=== PATIENT | female | born 2000 | race Caucasian/White ===

== ENCOUNTER 2020-04-30 12:29 | Outpatient (CLI) | payer OTHER, SELFPAY ==
[2020-04-30 14:35] LABS: SARS-CoV-2 RNA PCR Negative (Negative)
== END 2020-04-30 12:30 | disposition home or self-care (01) ==
LOC: CHSLAB 12:33
PROVIDERS: PCP Nurse Practitioner; Visit Provider Nurse Practitioner
DX: Z20.822 Contact with and (suspected) exposure to COVID-19 (principal)
CPT/HCPCS: C9803; U0003; U0005

== ENCOUNTER 2020-06-05 13:18 | Outpatient (CLI) | payer OTHER, SELFPAY ==
[2020-06-05 14:20] LABS: SARS-CoV-2 RNA PCR Negative (Negative)
== END 2020-06-05 13:19 | disposition home or self-care (01) ==
PROVIDERS: PCP Family Medicine; Visit Provider Family Medicine
DX: Z20.822 Contact with and (suspected) exposure to COVID-19 (principal)
CPT/HCPCS: C9803; U0003; U0005

== ENCOUNTER 2021-08-02 09:59 | Emergency (ER) | payer OTHER, SELFPAY ==
--- NOTE | ~2021-08-02 | US_ITS ---
EXAMINATION: US OB <=14 wk fetus w TV DATE: 08/02/2021 10:52 INDICATION: Spotting during first trimester TECHNIQUE: Real-time pelvic transabdominal and transvaginal ultrasound was performed. COMPARISON: None. FINDINGS: There is an intrauterine gestational sac. A yolk sac is identified. heart motion is i dentified measuring 127 beats per minute (bpm) by M-mode Doppler. The crown rump length measure s 6 mm , which correlates with an estimated gestational age of 6 weeks and 4 day(s) (+/-) 4 day(s). The right ovary measures 2.6 x 3.0 x 1.6 cm. The left ovary measures 1.7 x 2.8 x 1.3 cm. There is nor mal vascular flow in the ovaries. There is no free fluid in the pelvis. IMPRESSION: 1. Live intrauterine with an estimated gestational age of 6 weeks and 4 day(s) (+/-) 4 day( s) and an estimated delivery date of 03/24/2022. Reviewed, dictated and finalized at location A. IMPRESSION: 1. Live intrauterine with an estimated gestational age of 6 weeks and 4 day(s) (+/-) 4 day(s) and an estimated delivery date of 03/24/2022.
[2021-08-02 10:22] LABS: Basophils Percent Auto 0.4 % (0.2-1.2); Eosinophils Absolute Auto 0.1 K/mm3 (0-0.3); Eosinophils Percent Auto 0.6 % (0-4.4); Hemoglobin 13.6 g/dL (12.0-15.0); Immature Granulocyte Absolute 0.03 K/mm3 (0.00-0.031); Immature Granulocyte Percent A 0.3 % (0-0.5); Lymphocytes Absolute Auto 2.39 K/mm3 (0.9-3.2); Lymphocytes Percent Auto 26.7 % (18.3-44.2); Mean Corpuscular Volume 88.3 fl (80-100); Mean Platelet Volume 10.1 fl (7.4-10.4); Monocytes Absolute Auto 0.6 K/mm3 (0.1-0.6); Monocytes Percent Auto 6.9 % (2.6-8.5); Neutrophils Absolute Auto 5.8 K/mm3 (1.3-6.7); Neutrophils Percent Auto 65.1 % (45.5-73.1); Platelet Count Result 280 k/mm3 (150-375); Red Blood Count 4.53 M/mm3 (4.2-5.4); Red Cell Distribution Width 12.3 % (11.5-14.5)
--- NOTE | 2021-08-02 10:27 | ED.FEMALEGU ---
HPI - Female Genitourinary General Chief complaint: Vaginal Bleeding Stated complaint: with spotting Time Seen by Provider: 08/02/21 10:15 History of Present Illness HPI Narrative: Patient is a 20-year-old female who is currently about 7 weeks by her LMP here for evaluation of vaginal spotting today. Patient states that she has had several episodes of spotting, not enough to soak through a pad or a tampon. Additionally reports some sharp lower abdominal pains last week, now resolved. She has not yet had an ultrasound to confirm IUP nor has she seen an OB doctor yet. Does note nausea and vomiting. Denies fevers, chills, chest pain, shortness of breath, diarrhea or constipation. Related Data Allergies Allergy/AdvReac Type Severity Reaction Status Date / Time No Known Allergies Allergy Verified 08/02/21 11:03 Review of Systems Review of Systems: Gen.: Denies fevers or chills Eyes: Denies eye pain or visual change ENT: Denies congestion Respiratory: Denies shortness of breath or cough CV: Denies chest pain or palpitations GI: Reports lower abdominal pain, resolved. Reports nausea, emesis. no diarrhea reports vaginal spotting. Denies burning, urgency, frequency or hematuria Musculoskeletal: Denies back pain or muscle pain Neuro: Denies numbness, tingling, weakness or focal weakness Skin: Denies rash Except as documented, all other systems reviewed and negative Exam Narrative: APPEARANCE: Well appearing, no pain in distress, well-nourished. Head: Normocephalic and atraumatic. EYES: PERRLA/EOMI, conjunctivae clear NOSE: No nasal drainage EARS: External ear normal in appearance THROAT: Oropharynx is clear. Mucous membranes are moist. NECK: Supple. No adenopathy, no masses. RESPIRATORY: Airway patent, respirations nonlabored. Clear to auscultation bilaterally, no rales, rhonchi, wheezing. CARDIOVASCULAR: Regular rate and rhythm without murmurs, rubs, or gallops. : Exam performed with jerzy Castro. Sixto sign positive. Cervical os is closed with scant amount of blood noted in vaginal vault. ABDOMINAL: Normoactive bowel sounds. Soft, nontender, nondistended. No rebound tenderness or guarding. MUSCULOSKELETAL: Extremities are warm and well-perfused. Moves all extremities well. No edema. NEURO: Normal speech. No focal neurologic deficits. SKIN: Skin is warm and dry. No rashes. PSYCHIATRIC: Normal affect/mood. Course Vital Signs Vital signs: Vital Signs Temperature 98.2 F 08/02/21 10:29 Temperature 98.0 F 08/02/21 11:05 Pulse Rate 108 H 08/02/21 12:43 Respiratory Rate 18 08/02/21 12:43 Blood Pressure 145/90 H 08/02/21 12:43 Pulse Oximetry 100 08/02/21 12:43 MDM - Female Genitourinary MDM Narrative Medical decision making narrative: 20-year-old female who is currently 6 weeks here for evaluation of vaginal spotting. Patient mildly tachycardic, likely due to anxiety. No abdominal tenderness on exam, cervical os is closed with very scant amount of blood noted in vaginal vault. Ultrasound with evidence of live IUP, patient is B- and given dose of RhoGAM. Will provide OB follow-up and discussed return precautions. Lab Data Result diagrams: 08/02/21 10:17 Labs: Lab Results 08/02/21 08/02/21 08/02/21 Range/Units 10:17 10:17 10:19 WBC 9.0 (4.5-10.0) K/mm3 RBC 4.53 (4.2-5.4) M/mm3 Hgb 13.6 (12.0-15.0) g/dL Hct 40.0 (37.0-47.0) % MCV 88.3 (80-100) fl MCH 30.0 (26-34) pg MCHC 34.0 (32-36) g/dl RDW 12.3 (11.5-14.5) % Plt Count 280 (150-375) k/mm3 MPV 10.1 (7.4-10.4) fl Immature Gran % (Auto) 0.3 (0-0.5) % Neut % (Auto) 65.1 (45.5-73.1) % Lymph % (Auto) 26.7 (18.3-44.2) % [place] % (Auto) 6.9 (2.6-8.5) % Eos % (Auto) 0.6 (0-4.4) % Baso % (Auto) 0.4 (0.2-1.2) % Lymph # (Auto) 2.39 (0.9-3.2) K/mm3 [place] # (Auto) 0.6 (0.1-0.6) K/mm3 Eos # (Auto) 0.1
[2021-08-02 10:29] VITALS: TEMP 36.8
[2021-08-02 11:05] VITALS: BP 142/93; PULSE 110; RESP 18; TEMP 36.7; O2SAT 98
[2021-08-02] MEDS: RHO(D) IMMUNE GLOBULIN 300 MCG/2 ML SYRINGE IM (12:39)
[2021-08-02 12:43] VITALS: BP 145/90; PULSE 108; RESP 18; O2SAT 100
== END 2021-08-02 12:41 | disposition home or self-care (01) ==
PROVIDERS: Emergency Provider Emergency Medicine; PCP Family Medicine
DX: O20.9 Hemorrhage in early pregnancy, unspecified (principal); Z3A.01 Less than 8 weeks gestation of pregnancy
CPT/HCPCS: 36415; 76801; 76817; 84702; 85025; 85461; 90384; 96372; 99284; J2790

== ENCOUNTER 2021-12-24 14:31 | Outpatient (CLI) | payer OTHER, SELFPAY ==
[2021-12-24 15:23] LABS: SARS-CoV-2 RNA PCR Negative (Negative)
== END 2021-12-24 14:32 | disposition home or self-care (01) ==
LOC: CHSLAB 14:34
PROVIDERS: PCP Family Medicine; Visit Provider Nurse Practitioner
DX: J06.9 Acute upper respiratory infection, unspecified (principal); Z20.822 Contact with and (suspected) exposure to COVID-19
CPT/HCPCS: U0003; U0005

== ENCOUNTER 2022-01-12 10:23 | Outpatient (CLI) | payer OTHER, SELFPAY | END 2022-01-12 10:24 | disposition home or self-care (01) | LOC: CHSLAB 10:25 | PROVIDERS: PCP Family Medicine; Visit Provider Obstetrics & Gynecology | DX: Z34.80 Encounter for supervision of other normal pregnancy, unspecified trimester (principal) | CPT/HCPCS: 36415; 85461; 86850; 86900; 86901; 90384; J2790 ==

== ENCOUNTER 2022-02-04 21:05 | Observation (INO) | payer OTHER, SELFPAY ==
[2022-02-04 21:23] VITALS: BP 141/70; PULSE 98; RESP 16; TEMP 36.6
[2022-02-04 21:27] VITALS: BMI 29.5
--- NOTE | 2022-02-04 21:27 | OBADM ---
This patient, Lily Walton, admitted to the OB room OB Post 115 for observation. Patient/family oriented to hospital policies and general routines including ID bracelet, bed and alarms, visiting hours, pain management, procedures, bathroom and other care routines, personal items, smoking policy, room service/diet, and visiting hours. Patient/Family are encouraged to report perceived risks to care and to ask questions if they do not understand what they are told or what they should do.
[2022-02-04 21:45] VITALS: BP 135/70; PULSE 103
[2022-02-04 22:00] VITALS: BP 97/75; PULSE 94
[2022-02-04 22:04] LABS: Add Urine Microscopic? YES; Appearance Urine Clear (Clear); Bilirubin Urine Negative (Negative); Blood Urine Negative (Negative); Color Urine Yellow (Yellow); Glucose Urine UA Negative (Negative); Ketones Urine 2+ mg/dL (Negative); Leukocyte Esterase Ur 1+ LEU/UL (Negative); Nitrate Urine Negative (Negative); Protein Urine Negative (Negative); Urobilinogen Urine 0.2 mg/dL (<2.0)
[2022-02-04 22:07] LABS: Bacteria Urine Trace /hpf; Mucus Urine Rare /lpf; RBC Urine 0-2 /hpf (0-2); Squamous Epithelial Cell Urine Many /hpf (Few)
[2022-02-04 22:15] VITALS: BP 120/75; PULSE 109
--- NOTE | 2022-02-04 22:34 | PC.NURSE ---
This RN administered discharge instructions. PT given opportunity to ask questions with all questions answered by RN. PT stable at this time. PT stable at this time. PT discarged ambulatory not in active labor.
--- NOTE | 2022-02-09 07:41 | PM.OBTRLD ---
OB - Triage/Final Diagnosis Visit Information Reason for evaluation: threatened labor Comments/Additional reasons for admission: I have assessed the risk for this patient, Lily Walton, and determined that she would benefit from observation care. Evaluation Laboratory results: Laboratory Tests 02/04/22 21:41 Urine Color Yellow Urine Appearance Clear Urine pH 7.[address] 1.020 Urine Protein Negative Urine Glucose (UA) Negative Urine Ketones 2+ H Ur Blood (Man) Negative Urine Nitrate Negative Urine Bilirubin Negative Urine Urobilinogen 0.2 Leukocyte Esterase Rfl 1+ H Urine RBC 0-2 Urine WBC 10-15 H Ur Squamous Epith Cells Many H Urine Bacteria Trace Urine Mucus Rare
== END 2022-02-04 22:25 | disposition home or self-care (01) ==
PROVIDERS: Admitting Provider Obstetrics & Gynecology; PCP Family Medicine; Visit Provider Obstetrics & Gynecology
DX: O47.9 False labor, unspecified (principal); Z3A.00 Weeks of gestation of pregnancy not specified
CPT/HCPCS: 81001; 87086; 87088; G0378; G0379

== ENCOUNTER 2022-02-27 20:28 | Inpatient (IN) | payer OTHER, SELFPAY ==
[2022-02-27] VITALS (13 sets, daily range): BP systolic 97–153; BP diastolic 60–107; PULSE 98–134; RESP 15; BMI 31.0
[2022-02-27] MEDS: LACTATED RINGERS 1,000 ML 125 ML IV CONT (21:05)
[2022-02-27] MEDS: AMPICILLIN 2 GM/NS 100 ML 2 GM/100 ML BAG IVPB (21:15)
[2022-02-27 21:36] LABS: Alanine Aminotransferase 17 U/L (6-35); Albumin Level 3.9 g/dL (3.5-5.1); Alkaline Phosphatase 155 U/L (38-126); Anion Gap 9 mmol/L (8-16); Aspartate Amino Transferase 22 U/L (14-36); Bilirubin,Total 0.4 mg/dL (0.2-1.3); Blood Urea Nitrogen 4 mg/dL (7-17); Calcium 8.8 mg/dL (8.4-10.2); Carbon Dioxide 22 mmol/L (22-30); Chloride 104 mmol/L (98-107); Estimated Glomerular Filt Rate > 60; Glucose 102 mg/dL (65-110); Potassium 3.9 mmol/L (3.4-5.0); Sodium 135 mmol/L (137-145); Uric Acid 3.7 mg/dL (2.5-7.5)
[2022-02-27 21:39] LABS: Basophils Absolute Auto 0.1 K/mm3 (0.0-0.1); Basophils Percent Auto 0.6 % (0.2-1.2); Eosinophils Absolute Auto 0.2 K/mm3 (0-0.3); Eosinophils Percent Auto 0.9 % (0-4.4); Hematocrit 32.9 % (37.0-47.0); Hemoglobin 10.4 g/dL (12.0-15.0); Immature Granulocyte Absolute 0.77 K/mm3 (0.00-0.031); Immature Granulocyte Percent A 3.9 % (0-0.5); Lymphocytes Absolute Auto 3.18 K/mm3 (0.9-3.2); Lymphocytes Percent Auto 15.9 % (18.3-44.2); Mean Corpuscular HGB Conc 31.6 g/dl (32-36); Mean Corpuscular Hemoglobin 25.9 pg (26-34); Mean Corpuscular Volume 81.8 fl (80-100); Mean Platelet Volume 9.8 fl (7.4-10.4); Monocytes Absolute Auto 1.6 K/mm3 (0.1-0.6); Monocytes Percent Auto 7.9 % (2.6-8.5); Neutrophils Absolute Auto 14.1 K/mm3 (1.3-6.7); Neutrophils Percent Auto 70.8 % (45.5-73.1); Nucleated Red Blood Cells Perc 0.1 % (0.0-0.2); Platelet Count Result 383 k/mm3 (150-375); Red Blood Count 4.02 M/mm3 (4.2-5.4); Red Cell Distribution Width 13.9 % (11.5-14.5)
--- NOTE | 2022-02-27 21:52 | LDADM ---
This patient, Lily Walton, was admitted to Labor/Delivery/Recovery 105 on 02/27/22 at 20:28. Plans for labor, pain management and were discussed with patient. Patient/family oriented to hospital policies and general routines including ID bracelet, bed and alarms, visiting hours, pain management, procedures, bathroom and other care routines, personal items, smoking policy, room service/diet and guest tray routines, infant security routines, and visiting hours. Patient/Family are encouraged to report perceived risks to care and to ask questions if they do not understand what they are told or what they should do. See OBIX for further documentation.
[2022-02-27] MEDS: ONDANSETRON INJ 4 MG/2 ML VIAL IV PUSH (21:54)
[2022-02-28] VITALS (164 sets, daily range): BP systolic 99–145; BP diastolic 51–105; PULSE 97–163; RESP 15–16; TEMP 36.5–37.5; O2SAT 91–100
[2022-02-28] MEDS: LACTATED RINGERS 1,000 ML 125 ML IV CONT ×3 (00:11→09:32)
--- NOTE | 2022-02-28 00:44 | WPDANESEPP ---
Anes - Eval Pre Procedure Procedure: labor epidural Date/Time: 02/28/22 00:44 Surgeon: venessa Preop Diagnosis: pain during labor Pre Op Diagnosis: SROM Patient Data Age: 21 Gender: F Height: 1.63 m Weight: 82 kg Last Vital Signs Temp 37.4 C 02/28/22 00:16 Pulse 106 H 02/28/22 00:31 Resp 16 02/28/22 00:16 BP 129/73 02/28/22 00:31 Pulse Ox 100 02/28/22 00:41 Allergies Allergy/AdvReac Type Severity Reaction Status Date / Time No Known Allergies Allergy Verified 02/27/22 22:05 Home Medications Medication Instructions Recorded Confirmed Type vits 75-iron 28 mg-folic 1 pkg PO DAILY 02/27/22 02/27/22 History acid 800 mcg-omega3 440 mg oral pack Laboratory Tests 02/27/22 02/27/22 02/27/22 21:19 21:19 21:20 WBC 20.0 K/mm3 H K/mm3 (4.5-10.0) RBC 4.02 M/mm3 L M/mm3 (4.2-5.4) Hgb 10.4 g/dL L D g/dL (12.0-15.0) Hct 32.9 % L % (37.0-47.0) MCV 81.8 fl fl (80-100) MCH 25.9 pg L pg (26-34) MCHC 31.6 g/dl L g/dl (32-36) RDW 13.9 % % (11.5-14.5) Plt Count 383 k/mm3 H k/mm3 (150-375) MPV 9.8 fl fl (7.4-10.4) Immature Gran % (Auto) 3.9 % H % (0-0.5) Neut % (Auto) 70.8 % % (45.5-73.1) Lymph % (Auto) 15.9 % L % (18.3-44.2) [place] % (Auto) 7.9 % % (2.6-8.5) Eos % (Auto) 0.9 % % (0-4.4) Baso % (Auto) 0.6 % % (0.2-1.2) Lymph # (Auto) 3.18 K/mm3 K/mm3 (0.9-3.2) [place] # (Auto) 1.6 K/mm3 H K/mm3 (0.1-0.6) Eos # (Auto) 0.2 K/mm3 K/mm3 (0-0.3) Baso # (Auto) 0.1 K/mm3 K/mm3 (0.0-0.1) Abs Immat Gran (auto) 0.77 K/mm3 H K/mm3 (0.00-0.031) Absolute Neuts (auto) 14.1 K/mm3 H K/mm3 (1.3-6.7) Absolute Nucleated RBC 0.0 K/mm3 K/mm3 (0.0-0.012) Nucleated RBC % 0.1 % % (0.0-0.2) Sodium 135 mmol/L L mmol/L (137-145) Potassium 3.9 mmol/L mmol/L (3.4-5.0) Chloride 104 mmol/L mmol/L (98-107) Carbon Dioxide 22 mmol/L mmol/L (22-30) Anion Gap 9 mmol/L mmol/L (8-16) BUN 4 mg/dL L mg/dL (7-17) Creatinine 0.40 mg/dL L mg/dL (0.7-1.0) Estim Creat Clear Calc Not Reportable Estimated GFR > 60 (59 - ) Glucose 102 mg/dL mg/dL (65-110) Uric Acid 3.7 mg/dL mg/dL (2.5-7.5) Calcium 8.8 mg/dL mg/dL (8.4-10.2) Total Bilirubin 0.4 mg/dL mg/dL (0.2-1.3) AST 22 U/L U/L (14-36) ALT 17 U/L U/L (6-35) Alkaline Phosphatase 155 U/L H U/L (38-126) Total Protein 8.0 g/dL g/dL (6.3-8.2) Albumin 3.9 g/dL g/dL (3.5-5.1) RPR Pending Patient hx anesthesia problems: none Family hx anesthesia problems: none Results Review: All pre-operative results and documents have been reviewed as part of the pre-operative evaluation. [facility] Social History Social History Smoking status: Never smoker Second hand tobacco smoke exposure: No Substance use: never Lack of Transportation: No Lack of Food: Never True Current Housing: I Have Housing Concerned About Future Housing: No Difficulty Paying Gas/Electric Bills: No Difficulty Paying for Meds: No Currently Unemployed: No Education: Don't Know Difficulty w/ Childcare or Family Care: No Spiritual care concerns: No Exam Day of Procedure 02/28/22 00:44
[2022-02-28] MEDS: AMPICILLIN 1 GM/NS 50 ML 1 GM/50 ML BAG IVPB ×3 (01:04→09:32)
[2022-02-28] MEDS: OXYTOCIN 30 UNITS/NS 500 ML 30 UNITS/500 ML BAG IV CONT (05:01)
--- NOTE | 2022-02-28 07:46 | PM.IMHP ---
H&P: HPI History of Present Illness Date/Time: 02/28/22 07:46 Chief Complaint: Rupture membranes at term Narrative: this is a 21-year-old Kenzie last menstrual period is unknown, EDC is 03/23/2022, confirmed by early ultrasound the presents at 37 weeks gestation with spontaneous rupture membranes prior to admission. Her was complicated by low-lying placenta which resolved. She is Rh negative and received RhoGAM at 28 weeks. Her diabetic screen was normal. [facility] Social History Social History Smoking status: Never smoker Second hand tobacco smoke exposure: No Substance use: never Lack of Transportation: No Lack of Food: Never True Current Housing: I Have Housing Concerned About Future Housing: No Difficulty Paying Gas/Electric Bills: No Difficulty Paying for Meds: No Currently Unemployed: No Education: Don't Know Difficulty w/ Childcare or Family Care: No Spiritual care concerns: No Meds Home Medications and Allergies Home Medications Medication Instructions Recorded Confirmed Type vits 75-iron 28 mg-folic 1 pkg PO DAILY 02/27/22 02/27/22 History acid 800 mcg-omega3 440 mg oral pack Allergies Allergy/AdvReac Type Severity Reaction Status Date / Time No Known Allergies Allergy Verified 02/27/22 22:05 Vital Signs Vital Signs - 24 hr 02/27/22 20:43 02/27/22 20:48 02/27/22 21:15 Temperature Pulse Rate 134 H 128 H 121 H Respiratory Rate 15 Blood Pressure 153/107 H 138/86 136/84 Pulse Oximetry 02/27/22 21:30 02/27/22 21:46 02/27/22 22:00 Temperature Pulse Rate 117 H 116 H 112 H Respiratory Rate Blood Pressure 138/90 132/86 129/82 Pulse Oximetry 02/27/22 22:15 02/27/22 22:31 02/27/22 22:46 Temperature Pulse Rate 114 H 98 106 H Respiratory Rate Blood Pressure 127/87 112/66 126/60 Pulse Oximetry 02/27/22 23:01 02/27/22 23:15 02/27/22 23:30 Temperature Pulse Rate 116 H 110 H 103 H Respiratory Rate Blood Pressure 114/65 117/69 97/79 L Pulse Oximetry 02/27/22 23:45 02/28/22 00:00 02/28/22 00:16 Temperature 99.3 F Pulse Rate 107 H 120 H Respiratory Rate 16 Blood Pressure 111/60 132/91 H Pulse Oximetry 02/28/22 00:31 02/28/22 00:41 02/28/22 00:41 Temperature Pulse Rate 106 H Respiratory Rate Blood Pressure 129/73 Pulse Oximetry 100 100 02/28/22 00:45 02/28/22 00:46 02/28/22 00:49 Temperature Pulse Rate 121 H 127 H Respiratory Rate Blood Pressure 140/84 144/76 H Pulse Oximetry 100 02/28/22 00:51 02/28/22 00:56 02/28/22 01:01 Temperature Pulse Rate 115 H 151 H Respiratory Rate Blood Pressure 136/89 121/81 Pulse Oximetry 99 100 100 02/28/22 01:02 02/28/22 01:04 02/28/22 01:05 Temperature Pulse Rate 129 H 125 H 114 H Respiratory Rate Blood Pressure 132/71 121/71 122/62 Pulse Oximetry 02/28/22 01:06 02/28/22 01:09 02/28/22 01:11 Temperature Pulse Rate 114 H 134 H Respiratory Rate Blood Pressure 124/67 115/68 Pulse Oximetry 100 100 02/28/22 01:12 02/28/22 01:16 02/28/22 01:18 Temperature Pulse Rate 116 H 135 H 119 H Respiratory Rate Blood Pressure 128/69 130/63 124/68 Pulse Oximetry 100 02/28/22 01:21 02/28/22 01:24 02/28/22 01:26 Temperature Pulse Rate 110 H 109 H Respiratory Rate Blood Pressure 133/76 130/67 Pulse Oximetry 100 100 02/28/22 01:28 02/28/22 01:31 02/28/22 01:37 Temperature 98.9 F Pulse Rate 122 H 126 H Respiratory Rate 16 Blood Pressure 127/71 138/82 Pulse Oximetry 100 02/28/22 01:46 02/28/22 02:01 02/28/22 02:15 Temperature Pulse Rate 119 H 116 H 116 H Respiratory Rate Blood Pressure 124/84 112/73 118/73 Pulse Oximetry 02/28/22 02:30 02/28/22 02:42 02/28/22 02:46 Temperature 97.7 F Pulse Rate 116 H 97 Respiratory Rate 16 Blood Pressure 128/76
[2022-02-28 10:51] LABS: Rapid Plasma Reagin Non-Reactive (NonReactive)
--- NOTE | 2022-02-28 12:13 | PM.OBPRVD ---
OB - Delivery Note Procedure Delivery date: 02/28/22 Induction method: None Delivery augmentation: Pitocin Delivery monitor: External FHT and Internal Uterine Route of delivery: Episiotomy description: None Laceration Description: Perineal - 2nd Degree Delivery repair: vicryl Specimen: No Quantitative Blood Loss (ml): 60 Anesthesia type: Epidural Disposition: Floor Morning View Baby Date of : 02/28/22 Time of : 12:02 Weeks of gestation at delivery: 37 gender: Female presentation: vertex position: Right Occiput Anterior Placenta delivery description: Spontaneous Cord Vessel Description: 3 Vessels and Delayed Cord Clamping score one minute: 7 score five minutes: 9
[2022-02-28] MEDS: OXYTOCIN 30 UNITS/NS 500 ML 30 UNITS/500 ML BAG 125 UNITS IV CONT (12:35)
--- NOTE | 2022-02-28 12:41 | PC.NURSE ---
[address] [place] hung by Sherri Srivastava RN
[2022-02-28] MEDS: ACETAMINOPHEN 325 MG TABLET 650 MG PO (13:42)
--- NOTE | 2022-02-28 15:23 | PC.NURSE ---
Patient transferred to post room #282 via ( W/C ). Support person present. Oriented to unit, room, information board, rooming in, admission packet and security measures. Patient verbalizes understanding.
[2022-02-28] MEDS: DOCUSATE SODIUM 100 MG CAPSULE PO (15:49)
[2022-03-01 00:24] VITALS: BP 136/89; PULSE 102; RESP 16; TEMP 37.1; O2SAT 99
[2022-03-01] MEDS: ACETAMINOPHEN 325 MG TABLET 650 MG PO ×2 (00:50→09:31)
[2022-03-01 05:03] VITALS: BP 119/81; PULSE 105; RESP 18; TEMP 36.7; O2SAT 99
[2022-03-01 05:33] LABS: Hematocrit 25.6 % (37.0-47.0); Hemoglobin 8.2 g/dL (12.0-15.0)
--- NOTE | 2022-03-01 07:27 | WPDANLDPN2 ---
Anes-Prog Note L&D Date/Time: 03/01/22 07:27 Comfortable throughout: labor and delivery Neuraxial method: epidural Epidural/Spinal procedure site: clean & non-tender Neuro status: Neuro function grossly intact. Cardiovascular status: normal Respiratory status: normal Airway patency: baseline Mental status: baseline Post-Op hydration status: normal Vital Signs: Last Vital Signs Temp 36.7 C 03/01/22 05:03 Pulse 105 H 03/01/22 05:03 Resp 18 03/01/22 05:03 BP 119/81 03/01/22 05:03 Pulse Ox 99 03/01/22 05:03 O2 Del Method Room Air 02/28/22 15:46 Pain score (VAS): 02/15 I/O: Intake & Output 02/28/22 02/28/22 03/01/22 15:59 23:59 07:59 Intake Total 1500 Output Total 305 500 Balance 1195 -500 Post-procedural complaints: none Patient feedback: Patient satisfied with anesthetic care.
--- NOTE | 2022-03-01 07:39 | PM.DS ---
DS: Admitting Diagnosis Discharge Date 03/01/22 Admitting Diagnosis Term DS: Discharge Diagnosis Discharge Diagnosis (1) Term : Code(s): Z34.90 - Encounter for supervision of normal , unspecified, unspecified trimester Status: Acute DS: Summary Hospital Course Reason for hospitalization: Active labor at 37 weeks gestation Hospital Course: Patient was admitted in active labor and underwent spontaneous vaginal delivery. The course unremarkable. She remained afebrile. She was up, voiding without difficulty, ambulating, eating regular diet, general without complaints. Time Spent with Patient Time attestation: Total time spent providing and/or coordinating discharge services: Exam Const: General: cooperative, healthy appearing, comfortable and well groomed Nutritional Appearance: average body habitus Orientation/consciousness: oriented to person, oriented to place and oriented to time HENMT: Head: normal to inspection Resp: Effort & Inspection: normal respiratory effort Cardio: Rate: regular rate Rhythm: regular rhythm Heart sounds: S1 normal heart sound present and S2 normal heart sound present GI: Inspection: normal to inspection (Fundus firm below the umbilicus) DS: Data Data Completed and Pending Labs on day of discharge: Labs from last 24 hours 03/01/22 03/01/22 02/27/22 05:20 05:20 21:19 Hgb 8.2 L Hct 25.6 L RPR Blood Type B Negative Antibody Screen TNP Antibody Identification Inconclusive Screen Negative Baby's Blood Type B pos Baby's JR Negative Doses of RhIg Required 1 02/27/22 21:19 Hgb Hct RPR Non-reactive Blood Type Antibody Screen Antibody Identification Screen Baby's Blood Type Baby's JR Doses of RhIg Required Discharge Plan Discharge Attending physician on discharge: Linden Billingsley Discharging Clinician: Linden Billingsley Patient Disposition: Home, Self-Care Activity: pelvic rest Diet: heart healthy Wound Care Instructions: follow printed instructions Discharge Instructions: Education: Mom and Baby Guide Given to: Mother Follow-Up: Call your delivering provider's office for an appointment to be seen in: 4-6 weeks Mom and baby should come to the [facility] for the follow-up appointment. Appointment Date/Time: Wednesday March 02, 2022 at 3:30 pm What to expect at your follow-up visit: Physical Assessment Call [phone] if you are unable to keep your appointment time. BREAST CARE: * Wear a snug supportive bra. * For engorgement discomfort: Breast Feeding: * Apply warm moist washcloths * Express milk as needed to relieve engorgement * Wear loose clothing * For sore nipples: * Identify correct latch-on * Apply warm moist washcloths before and after nursing * Air dry nipples after nursing * May apply Lansinoh cream to nipples PERINEAL CARE: * Until bleeding stops, use your pedro bottle after urinating * Change your pad frequently throughout the day * You may take sitz baths several times a day (fill your bathtub with warm water and soak for 20 minutes.) Do NOT bathe in the water * No tub baths until seen by your physician - You may shower ACTIVITY: * Rest as much as possible. * Do not exercise or lift anything heavier than your baby (such as laundry or other children.) * Avoid stairs or driving as much as possible. * Do not put anything into the vagina. No douching, tampons, or sexual activity until seen by physician. NOTIFY PHYSICIAN IF YOU HAVE ANY QUESTIONS OR IF ANY OF THE FOLLOWING SYMPTOMS OCCUR: * If your episiotomy or incision becomes red, swollen, or more painful than what you have experienced in the hospital. * If your vaginal bleeding becomes foul smelling. * If your vaginal bleeding becomes more heavy than
--- NOTE | 2022-03-01 07:41 | PM.OBPNVD ---
OB - PN: Subj Subjective Date/time seen: 03/01/22 07:41 Patient comments: no complaints and pain well controlled baby status: doing well and nursing well OB - PN: Obj Data Labs 03/01/22 05:20 02/27/22 21:20 Labs: Laboratory Results - last 24 hr 02/27/22 02/27/22 03/01/22 21:19 21:19 05:20 Hgb 8.2 L Hct 25.6 L RPR Non-reactive Blood Type Antibody Screen Antibody Identification Inconclusive Screen Baby's Blood Type Baby's JR Doses of RhIg Required 03/01/22 05:20 Hgb Hct RPR Blood Type B Negative Antibody Screen TNP Antibody Identification Screen Negative Baby's Blood Type B pos Baby's JR Negative Doses of RhIg Required 1 OB - PN A/P Plan day: 1 Plan: routine care Time Spent With Patient Time: Total time spent is greater than 50% in coordination of care (as documented) at patient's floor/unit and/or counseling patient: Time with patient: less than 15 minutes Exam Const: General: cooperative, healthy appearing and comfortable Nutritional Appearance: average body habitus Orientation/consciousness: oriented to person, oriented to place and oriented to time HENMT: Head: normal to inspection Resp: Effort & Inspection: normal respiratory effort Cardio: Rate: regular rate Rhythm: regular rhythm Heart sounds: S1 normal heart sound present and S2 normal heart sound present GI: Inspection: normal to inspection (Fundus firm below the umbilicus)
[2022-03-01 08:58] VITALS: BP 129/89; PULSE 106; RESP 16; TEMP 36.7; O2SAT 98
[2022-03-01 09:31] VITALS: BP 129/89; PULSE 106; RESP 16; TEMP 36.7; O2SAT 98
[2022-03-01] MEDS: MULTIVIT/MIN/PREN/FOL AC/IRON TABLET 1 TAB PO (09:33)
[2022-03-01] MEDS: POLYSACCHARIDE IRON COMPLEX 150 MG CAPSULE PO (09:33)
[2022-03-01] MEDS: DOCUSATE SODIUM 100 MG CAPSULE PO (09:33)
[2022-03-01] MEDS: RHO(D) IMMUNE GLOBULIN 300 MCG/2 ML SYRINGE IM (09:39)
== END 2022-03-01 12:30 | disposition home or self-care (01) | DRG 560 ==
LOC: ANHLDR 20:53 → ANHOB2 02-28 15:35
PROVIDERS: Obstetrics & Gynecology; Admitting Provider Obstetrics & Gynecology; PCP Family Medicine; Visit Provider Obstetrics & Gynecology
DX: O60.14X0 Preterm labor third trimester with preterm delivery third trimester, not applicable or unspecified (principal); O42.92 Full-term premature rupture of membranes, unspecified as to length of time between rupture and onset of labor; O70.1 Second degree perineal laceration during delivery; Z3A.37 37 weeks gestation of pregnancy; Z37.0 Single live birth; Z67.91 Unspecified blood type, Rh negative
CPT/HCPCS: 36415; 80053; 84112; 84550; 85014; 85018; 85025; 85461; 86592; 86850; 86880; 86900; 86901; 86902; 90384; A9270; J0290; J2405; J2590; J2790; J2795; J7120

== ENCOUNTER 2024-10-28 11:29 | Outpatient (CLI) | payer OTHER, SELFPAY ==
--- OUTSIDE RECORDS SUMMARY | 2024-10-28 12:39 | XMS_ITS | Clinical Summary ---
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 Gender Identity Not on file Sexual Orientation Not on file Plan of Treatment Health Maintenance Due Date Last Done Comments Cervical Cancer Screening Pa p Smear (Age 21 to 29) Every 3 Years 1999 Cervical Cancer Screening 1999 Annual Physical 10/29/2002 HPV Vaccines (1 - 3-dose series) 10/29/2014 Hepatitis C 10/29/2017 DTaP, Tdap and Td Vaccines ( 1 - Tdap) 10/29/2018 Hepatitis B Vaccines (1 of 3 - 19+ 3-dose series) 10/29/2018 COVID-19 Vaccine (2023-2 5 season) 2024 Meningococcal B Vaccine Aged Out No l onger eligible based on patient's age to complete this topic Meningococcal Vaccine Aged Out No sacha gerardo eligible based on patient's age to complete this topic Pneumococcal Vaccine: Pediat rics (0 to 5 Years) and At-Risk Patients (6 to 49 Years) Aged Out No longer eligible b ased on patient's age to complete this topic RSV Immunizations Under 20 Months Aged Out No longer eligible based on patient's age to complete this topic
== END 2024-10-28 11:30 | disposition home or self-care (01) ==
PROVIDERS: PCP Obstetrics & Gynecology; Visit Provider Obstetrics & Gynecology
DX: Z36.89 Encounter for other specified antenatal screening (principal)
CPT/HCPCS: 36415; 85461; 86850; 86900; 86901; 90384; J2790

== ENCOUNTER 2024-11-20 15:23 | Outpatient (CLI) | payer OTHER, SELFPAY ==
[2024-11-20] VITALS (20 sets, daily range): BP systolic 115–128; BP diastolic 66–83; PULSE 98–108; O2SAT 98–100; BMI 29.5
[2024-11-20 15:58] LABS: Hematocrit 32.4 % (37.0-47.0); Hemoglobin 10.7 g/dL (12.0-15.0); Immature Granulocyte Percent A 4.5 % (0-0.5); Lymphocytes Absolute Auto 2.87 K/mm3 (0.9-3.2); Mean Corpuscular HGB Conc 33.0 g/dl (32-36); Mean Corpuscular Hemoglobin 28.4 pg (26-34); Mean Corpuscular Volume 85.9 fl (80-100); Nucleated Red Blood Cells Absolute Auto 0.000 K/mm3 (0.0-0.012); Nucleated Red Blood Cells Perc 0.0 % (0.0-0.2); Platelet Count Result 286 k/mm3 (150-375); Red Blood Count 3.77 M/mm3 (4.2-5.4); White Blood Count 17.0 K/mm3 (4.5-10.0)
[2024-11-20 16:03] LABS: Add Urine Microscopic? YES; Appearance Urine Turbid (Clear); Glucose Urine UA Negative (Negative); Leukocyte Esterase Ur 3+ LEU/UL (Negative); Nitrate Urine Negative (Negative); Non Pathogenic Casts 0-2; Specific Grav Ur 1.025 (1.001-1.035)
[2024-11-20 16:11] LABS: Alanine Aminotransferase 17 U/L (6-35); Albumin Level 3.7 g/dL (3.5-5.1); Alkaline Phosphatase 90 U/L (38-126); Anion Gap 9 mmol/L (4-12); Aspartate Amino Transferase 24 U/L (14-36); Bilirubin,Total 0.2 mg/dL (0.2-1.3); Blood Urea Nitrogen 8 mg/dL (7-17); Calcium 8.8 mg/dL (8.4-10.2); Carbon Dioxide 20 mmol/L (22-30); Chloride 104 mmol/L (98-107); Estimated CRCL calculation 180 ml/min; Estimated Glomerular Filt Rate > 60; Glucose 77 mg/dL (65-110); Potassium 3.8 mmol/L (3.4-5.0); Sodium 133 mmol/L (137-145); Total Protein 7.8 g/dL (6.3-8.2); Uric Acid 2.9 mg/dL (2.5-7.5)
[2024-11-20 16:22] LABS: Total Protein Urine Random 16 mg/dL; Ur Ttl Prot Creatinine Ratio 0.08 mg/mg (0-0.20)
--- OUTSIDE RECORDS SUMMARY | 2024-11-20 17:30 | XMS_ITS | Clinical Summary ---
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
== END 2024-11-20 16:45 | disposition home or self-care (01) ==
LOC: ANHOBOP 15:33 → ANHLDR 15:34
PROVIDERS: Visit Provider Obstetrics & Gynecology
DX: O13.9 Gestational [pregnancy-induced] hypertension without significant proteinuria, unspecified trimester (principal); Z3A.00 Weeks of gestation of pregnancy not specified
CPT/HCPCS: 36415; 59025; 80053; 81001; 82570; 84156; 84550; 85025; 99199

== ENCOUNTER 2024-11-24 01:05 | Observation (INO) | payer OTHER, SELFPAY ==
[2024-11-24 01:27] VITALS: BP 139/72; PULSE 100
[2024-11-24 01:31] VITALS: BP 129/64; PULSE 101
[2024-11-24 01:46] VITALS: BP 118/60; PULSE 99
[2024-11-24 01:48] LABS: Add Urine Microscopic? YES; Appearance Urine Cloudy (Clear); Glucose Urine UA Negative (Negative); Leukocyte Esterase Ur 2+ LEU/UL (Negative); Need Manual Microscopic Reviewed; Nitrate Urine Negative (Negative); Non Pathogenic Casts 0-2; Specific Grav Ur 1.027 (1.001-1.035)
[2024-11-24 02:01] VITALS: BP 116/61; PULSE 99
[2024-11-24 02:08] VITALS: BMI 29.1
--- NOTE | 2024-11-24 02:10 | OBADM ---
This patient, Lily Walton, admitted to the OB room OB Post 117 for observation. Patient/family oriented to hospital policies and general routines including ID bracelet, bed and alarms, visiting hours, pain management, procedures, bathroom and other care routines, personal items, smoking policy, room service/diet, and visiting hours. Patient/Family are encouraged to report perceived risks to care and to ask questions if they do not understand what they are told or what they should do.
[2024-11-24 02:16] VITALS: BP 122/67; PULSE 96
[2024-11-24] MEDS: NITROFURANTOIN MONOHYD MACROCR 100 MG CAP PO (02:25)
--- NOTE | 2024-11-26 16:25 | PM.OBTRLD ---
OB - Triage/Final Diagnosis Visit Information Reason for evaluation: threatened labor Comments/Additional reasons for admission: I have assessed the risk for this patient, Lily Walton, and determined that she would benefit from observation care. Evaluation Laboratory results: Laboratory Tests 11/24/24 01:23 Urine Color Yellow Urine Appearance Cloudy H Urine pH 6.5 Ur Specific [place] 1.027 Urine Protein Trace Urine Glucose (UA) Negative Urine Ketones Trace H Ur Blood (Man) Negative Urine Nitrate Negative Urine Bilirubin Negative Urine Urobilinogen 1.0 Add Ur Microanalysis Reviewed Leukocyte Esterase Rfl 2+ H Urine RBC 11-20 H Urine WBC 21-50 H Ur Squamous Epith Cells Many H Urine Bacteria 4+ H Urine Casts 0-2
== END 2024-11-24 02:30 | disposition home or self-care (01) ==
PROVIDERS: Admitting Provider Obstetrics & Gynecology; Visit Provider Obstetrics & Gynecology
DX: O47.03 False labor before 37 completed weeks of gestation, third trimester (principal); Z3A.29 29 weeks gestation of pregnancy
CPT/HCPCS: 81001; A9270; G0378; G0379

== ENCOUNTER 2025-01-29 05:09 | Inpatient (IN) | payer OTHER, SELFPAY ==
[2025-01-29] VITALS (70 sets, daily range): BP systolic 76–145; BP diastolic 27–96; PULSE 94–159; RESP 16; TEMP 36.4–36.8; O2SAT 98–100; BMI 31.4
--- NOTE | 2025-01-29 05:51 | LDADM ---
This patient, Lily Walton, was admitted to Labor/Delivery/Recovery 107 on 01/29/25 at 05:09. Plans for labor, pain management and were discussed with patient. Patient/family oriented to hospital policies and general routines including ID bracelet, bed and alarms, visiting hours, pain management, procedures, bathroom and other care routines, personal items, smoking policy, room service/diet and guest tray routines, infant security routines, and visiting hours. Patient/Family are encouraged to report perceived risks to care and to ask questions if they do not understand what they are told or what they should do. See OBIX for further documentation.
--- NOTE | 2025-01-29 06:03 | PM.IMHP2 ---
H&P: HPI History of Present Illness Date/Time: 01/29/25 06:03 Chief Complaint: Term for induction of labor Narrative: This is 24-year-old 2 para 1 whose last menstrual period was 05/03/2024, EDC is 02/05/2025, confirmed by 6 week ultrasound who presents at 39 weeks gestation for induction of labor she has had a negative group B strep she received RhoGAM at 28 weeks and she passed her diabetic screen the cervix is very favorable Review of Systems Review of Systems: Gen.: Denies fevers or chills Eyes: Denies eye pain or visual change ENT: Denies congestion Respiratory: Denies shortness of breath or cough CV: Denies chest pain or palpitations GI: Reports lower abdominal pain, resolved. Reports nausea, emesis. no diarrhea reports vaginal spotting. Denies burning, urgency, frequency or hematuria Musculoskeletal: Denies back pain or muscle pain Neuro: Denies numbness, tingling, weakness or focal weakness Skin: Denies rash Except as documented, all other systems reviewed and negative [facility] Family History Family History Father Diabetes mellitus Grandparent Breast cancer Social History Social History Smoking status: Never smoker Second hand tobacco smoke exposure: No Substance use: never Lack of Transportation: No Lack of Food: Never True Current Housing: I Have Housing Concerned About Future Housing: No Difficulty Paying Gas/Electric Bills: No Difficulty Paying for Meds: No Currently Unemployed: No Education: High School Diploma/GED Difficulty w/ Childcare or Family Care: No Spiritual care concerns: No Meds Home Medications and Allergies Allergies Allergy/AdvReac Type Severity Reaction Status Date / Time No Known Allergies Allergy Verified 01/29/25 05:21 Vital Signs Vital Signs - 24 hr 01/29/25 05:51 Pulse Rate 107 H Blood Pressure 127/79 Exam Const: General: cooperative, healthy appearing and comfortable Nutritional Appearance: average body habitus Orientation/consciousness: oriented to person, oriented to place and oriented to time HENMT: Head: normal to inspection (Gravid soft uterus) Assessment and Plan Assessment and plan (1) Term : Code(s): Z34.90 - Encounter for supervision of normal , unspecified, unspecified trimester Status: Acute Plan Medical induction of labor. Spontaneous vaginal is expected. She is an epidural candidate
[2025-01-29] MEDS: LACTATED RINGERS 1,000 ML 125 ML IV CONT ×2 (07:02→08:58)
[2025-01-29] MEDS: OXYTOCIN 30 UNITS/NS 500 ML 30 UNITS/500 ML BAG IV CONT (07:02)
[2025-01-29 07:06] LABS: Hematocrit 32.8 % (37.0-47.0); Hemoglobin 10.5 g/dL (12.0-15.0); Immature Granulocyte Percent A 2.4 % (0-0.5); Lymphocytes Absolute Auto 2.95 K/mm3 (0.9-3.2); Mean Corpuscular HGB Conc 32.0 g/dl (32-36); Mean Corpuscular Hemoglobin 25.2 pg (26-34); Mean Corpuscular Volume 78.8 fl (80-100); Nucleated Red Blood Cells Absolute Auto 0.000 K/mm3 (0.0-0.012); Nucleated Red Blood Cells Perc 0.0 % (0.0-0.2); Platelet Count Result 333 k/mm3 (150-375); Red Blood Count 4.16 M/mm3 (4.2-5.4); White Blood Count 13.6 K/mm3 (4.5-10.0)
[2025-01-29 07:20] LABS: Syphilis IgG/IgM Antibody Non-Reactive (Nonreactive)
[2025-01-29 07:41] LABS: HIV 1/2 Ab P24 Ag Result Negative (Negative)
--- NOTE | 2025-01-29 08:56 | P.PNAN_ITS ---
Anes - Initial Pre Proc Eval Date/Time: 01/29/25 08:56 Surgeon: Linden Clemens MD Pre Op Diagnosis: IOL Patient Data Age: 24 Gender: F Height: 1.63 m Weight: 83 kg Last Vital Signs Temp 36.8 C 01/29/25 06:00 Pulse 159 H 01/29/25 08:55 BP 139/69 01/29/25 08:55 Pulse Ox 100 01/29/25 08:54 O2 Del Method Room Air 01/29/25 05:51 Allergies Allergy/AdvReac Type Severity Reaction Status Date / Time No Known Allergies Allergy Verified 01/29/25 06:06 Home Medications ?Medication ?Instructions ?Recorded ?Confirmed ?Type vitamins with calcium tablet 01/29/25 Histor y no.72-iron 27 mg-folic acid 1 mg tablet (M-Robb Plus) Laboratory Tests 01/29/25 06:33 WBC 13.6 H K/mm3 (4.5-10.0) RBC 4.16 L M/mm3 (4.2-5.4) Hgb 10.5 L g/dL (12.0-15.0) Hct 32.8 L % (37.0-47.0) MCV 78.8 L fl (80-100) MCH 25.2 L pg (26-34) MCHC 32.0 g/dl (32-36) RDW 14.6 H % (11.5-14.5) Plt Count 333 k/mm3 (150-375) MPV 10.4 fl (7.4-10.4) Immature Gran % (Auto) 2.4 H % (0-0.5) Neut % (Auto) 65.5 % (45.5-73.1) Lymph % (Auto) 21.7 % (18.3-44.2) [place] % (Auto) 8.5 % (2.6-8.5) Eos % (Auto) 1.5 % (0-4.4) Baso % (Auto) 0.4 % (0.2-1.2) Lymph # (Auto) 2.95 K/mm3 (0.9-3.2) [place] # (Auto) 1.2 H K/mm3 (0.1-0.6) Eos # (Auto) 0.2 K/mm3 (0-0.3) Baso # (Auto) 0.1 K/mm3 (0.0-0.1) Abs Immat Gran (auto) 0.32 H K/mm3 (0.00-0.031) Absolute Neuts (auto) 8.9 H K/mm3 (1.3-6.7) Absolute Nucleated RBC 0.000 K/mm3 (0.0-0.012) Nucleated RBC % 0.0 % (0.0-0.2) Syphilis IgG/IgM Ab Non-reactive (Nonreactive) HIV 1&2 Ab/P24 Ag 4thGn Negative (Negative) Blood Type B Negative Antibody Screen Negative Patient hx anesthesia problems: none Family hx anesthesia problems: none Results Review: All pre-operative results and documents have been reviewed as part of the pre- operative evaluation. COUNTS INCLUDE 234 BEDS AT THE [facility] Family History Family History Father Diabetes mellitus Grandparent Breast cancer Social History Social History Smoking status: Never smoker Second hand tobacco smoke exposure: No Substance use: never Lack of Transportation: No Lack of Food: Never True Current Housing: I Have Housing Concerned About Future Housing: No Difficulty Paying Gas/Electric Bills: No Difficulty Paying for Meds: No Currently Unemployed: No Education: High School Diploma/GED Difficulty w/ Childcare or Family Care: No Spiritual care concerns: No Anes - Eval Final PreProcedure Day of Procedure 01/29/25 08:56 Patient weight: obese Heart: tachycardia Neurological: alert and oriented Last oral intake: >/= 8 hours ASA classification: III Emergent: no Anesthetic plan: proceed Anesthesia type and monitoring: regional epidural and standard monitoring Results Review: All pre-operative results and documents have been reviewed as part of the pre- operative evaluation. Informed Consent: The patient's anesthetic plan and its attendant risks and benefits were discussed with the patient/family/POA. Questions were solicited and answers provided to the satisfaction of the patient/family/POA.
[2025-01-29] MEDS: ONDANSETRON INJ 4 MG/2 ML VIAL IV PUSH (09:08)
--- NOTE | 2025-01-29 11:46 | PM.OBPNLAB ---
Pain Control Date/time seen: 01/29/25 11:46 Pain control: tolerating well and epidural Pelvic Exam Dilation (cm): 10 Effacement (%): 100 station: 0
--- NOTE | 2025-01-29 12:54 | PM.OBPRVD ---
OB - Vaginal Delivery Note Procedure Delivery date: 01/29/25 Events: Elective Induction of Labor Induction method: AROM Delivery augmentation: Pitocin Delivery monitor: External FHT and External Uterine Route of delivery: Episiotomy description: None Laceration Description: Perineal - 1st Degree Delivery repair: vicryl Specimen: No Quantitative Blood Loss (ml): 63 Anesthesia type: Epidural Disposition: Floor Complications: No immediate complications Narrative: The patient was admitted for induction of labor on the a.m. of 01/29/2025 she progressed unremarkable 1st stage of labor with epidural anesthesia should complete she pushed delivered spontaneously in the SHELLIE position anterior posterior shoulder delivered spontaneously. Cord clamped x2 and cut infant passed off the table with an excellent cry. Placenta delivered intact spontaneously and 20 its Pitocin placed IV to help firm the uterus a small first-degree midline laceration was noted and [id number] 3-0 Vicryl placed. Blood loss was estimated 63cc cc. All sponge, needle, instrument counts were correct. There were no complications Baby Date of : 01/29/25 Time of : 12:42 Gestational Age by Date: 39 gender: Male presentation: vertex position: Right Occiput Anterior Placenta delivery description: Spontaneous Cord Vessel Description: 3 Vessels
--- NOTE | 2025-01-29 12:56 | P.DS_ITS ---
DS: Admitting Diagnosis Discharge Date 01/30/2025 Admitting Diagnosis Term DS: Discharge Diagnosis Discharge Diagnosis (1) Term : Code(s): Z34.90 - Encounter for supervision of normal , unspecified, unspecified trimester Status: Acute DS: Summary Hospital Course Reason for hospitalization: Patient was admitted for induction of labor on 01/29/2025. She underwent spontaneous vaginal delivery with epidural anesthesia Hospital Course: Patient's hospital course unremarkable. She remained afebrile. She was up, voiding without difficulty, eating regular diet, ambulating, and generally without complaints. Time Spent with Patient Time attestation: Total time spent providing and/or coordinating discharge services: Exam Const: General: cooperative, healthy appearing and comfortable Nutritional Appearance: average body habitus Orientation/consciousness: oriented to person, oriented to place and oriented to time HENMT: Head: normal to inspection (Gravid soft uterus) DS: Data Data Completed and Pending Labs on day of discharge: Labs from last 24 hours 01/29/25 06:33 WBC 13.6 H RBC 4.16 L Hgb 10.5 L Hct 32.8 L MCV 78.8 L MCH 25.2 L MCHC 32.0 RDW 14.6 H Plt Count 333 MPV 10.4 Immature Gran % (Auto) 2.4 H Neut % (Auto) 65.5 Lymph % (Auto) 21.7 [place] % (Auto) 8.5 Eos % (Auto) 1.5 Baso % (Auto) 0.4 Lymph # (Auto) 2.95 [place] # (Auto) 1.2 H Eos # (Auto) 0.2 Baso # (Auto) 0.1 Abs Immat Gran (auto) 0.32 H Absolute Neuts (auto) 8.9 H Absolute Nucleated RBC 0.000 Nucleated RBC % 0.0 Syphilis IgG/IgM Ab Non-reactive HIV 1&2 Ab/P24 Ag 4thGn Negative Blood Type B Negative Antibody Screen Negative Discharge Plan Discharge Attending physician on discharge: Linden Billingsley Discharging Clinician: Linden Billingsley Patient Disposition: Home Activity: may shower, no straining and pelvic rest Diet: heart healthy Patient Instructions: Antibiotic Form Patient Language: Arabic Stand Alone Forms: General Discharge Information Follow-up/Referrals: Linden Billingsley MD [Physician, ME[employer]ULATOR] Discharge Medications: Continued M-Robb Plus 27 mg iron- 1 mg tablet Date of admission: 01/29/25 05:09 Primary Care Provider: Yuri Wasserman Admitting Provider: Linden Billingsley Attending physician on admission: Linden Billingsley Condition: Stable
[2025-01-29] MEDS: OXYTOCIN 30 UNITS/NS 500 ML 30 UNITS/500 ML BAG 125 UNITS IV CONT (13:17)
[2025-01-29] MEDS: BENZOCAINE 20% AER SPR (*SP) 56 GM CAN 1 SPRAY TOPICAL (15:06)
[2025-01-29] MEDS: WITCH HAZEL 40 PADS 1 PAD TOPICAL (15:06)
--- NOTE | 2025-01-29 15:26 | OBPPTRN ---
Patient transferred to post room #290 via wheelchair. Support person present. Oriented to unit, room, information board, rooming in, admission packet and security measures. Patient verbalizes understanding.
[2025-01-29] MEDS: IBUPROFEN 600 MG TABLET PO (19:15)
[2025-01-30 03:50] VITALS: BP 129/81; PULSE 89; RESP 16; TEMP 36.8; O2SAT 98
[2025-01-30 04:39] LABS: Hematocrit 29.5 % (37.0-47.0); Hemoglobin 9.2 g/dL (12.0-15.0)
--- NOTE | 2025-01-30 05:55 | PM.OBPNVD ---
OB - PN: Subj Subjective Date/time seen: 01/30/25 05:55 Patient comments: no complaints, pain well controlled and tolerating diet [place] baby status: doing well OB - PN: Obj Data Labs 01/30/25 03:54 Labs: Laboratory Results - last 24 hr 01/29/25 01/30/25 06:33 03:54 WBC 13.6 H RBC 4.16 L Hgb 10.5 L 9.2 L Hct 32.8 L 29.5 L MCV 78.8 L MCH 25.2 L MCHC 32.0 RDW 14.6 H Plt Count 333 MPV 10.4 Immature Gran % (Auto) 2.4 H Neut % (Auto) 65.5 Lymph % (Auto) 21.7 [place] % (Auto) 8.5 Eos % (Auto) 1.5 Baso % (Auto) 0.4 Lymph # (Auto) 2.95 [place] # (Auto) 1.2 H Eos # (Auto) 0.2 Baso # (Auto) 0.1 Abs Immat Gran (auto) 0.32 H Absolute Neuts (auto) 8.9 H Absolute Nucleated RBC 0.000 Nucleated RBC % 0.0 Syphilis IgG/IgM Ab Non-reactive HIV 1&2 Ab/P24 Ag 4thGn Negative Blood Type B Negative Antibody Screen Negative OB - PN A/P Assessment and Plan (1) Term : Code(s): Z34.90 - Encounter for supervision of normal , unspecified, unspecified trimester Status: Acute Plan circ baby then home Time Spent With Patient Time: Total time spent is greater than 50% in coordination of care (as documented) at patient's floor/unit and/or counseling patient: Review of Systems Review of Systems: Gen.: Denies fevers or chills Eyes: Denies eye pain or visual change ENT: Denies congestion Respiratory: Denies shortness of breath or cough CV: Denies chest pain or palpitations GI: Reports lower abdominal pain, resolved. Reports nausea, emesis. no diarrhea reports vaginal spotting. Denies burning, urgency, frequency or hematuria Musculoskeletal: Denies back pain or muscle pain Neuro: Denies numbness, tingling, weakness or focal weakness Skin: Denies rash Except as documented, all other systems reviewed and negative Exam Const: General: cooperative, healthy appearing and comfortable Nutritional Appearance: average body habitus Orientation/consciousness: oriented to person, oriented to place and oriented to time HENMT: Head: normal to inspection (Gravid soft uterus)
--- NOTE | 2025-01-30 06:11 | WPDANLDPN2 ---
Anes-Prog Note L&D Date/Time: 01/30/25 06:11 Comfortable throughout: labor and delivery Neuraxial method: epidural Epidural/Spinal procedure site: clean & non-tender Neuro status: Neuro function grossly intact. Cardiovascular status: normal Respiratory status: normal Airway patency: baseline Mental status: baseline Post-Op hydration status: normal Vital Signs: Last Vital Signs Temp 36.8 C 01/30/25 03:50 Pulse 89 01/30/25 03:50 Resp 16 01/30/25 03:50 BP 129/81 01/30/25 03:50 Pulse Ox 98 01/30/25 03:50 O2 Del Method Room Air 01/29/25 15:30 Pain score (VAS): 02/15 I/O: Intake & Output 01/29/25 01/29/25 01/30/25 15:59 23:59 07:59 Intake Total 241.7 100 Output Total 85 Balance 156.7 100 Post-procedural complaints: none Patient feedback: Patient satisfied with anesthetic care.
[2025-01-30 07:15] VITALS: BP 125/83; PULSE 98; RESP 18; TEMP 36.8; O2SAT 98
[2025-01-30] MEDS: MULTIVIT/MIN/PREN/FOL AC/IRON TABLET 1 TAB PO (09:18)
[2025-01-30] MEDS: ACETAMINOPHEN 325 MG TABLET 650 MG PO (09:19)
[2025-01-30] MEDS: DOCUSATE SODIUM 100 MG CAPSULE PO (09:19)
[2025-01-30] MEDS: IBUPROFEN 600 MG TABLET PO (09:19)
[2025-01-30 12:36] VITALS: BP 114/65; PULSE 88; RESP 16; TEMP 36.6; O2SAT 96
[2025-01-31 15:53] VITALS: BP 128/77; PULSE 99; RESP 20; TEMP 36.8; O2SAT 98
== END 2025-01-30 14:24 | disposition home or self-care (01) | DRG 560 ==
LOC: ANHLDR 12:58 → ANHOB2 15:27
PROVIDERS: Admitting Provider Obstetrics & Gynecology; PCP Family Medicine; Visit Provider Obstetrics & Gynecology
DX: O70.0 First degree perineal laceration during delivery (principal); Z37.0 Single live birth; Z3A.39 39 weeks gestation of pregnancy
CPT/HCPCS: 36415; 85014; 85018; 85025; 86593; 86703; 86850; 86900; 86901; A9270; G0432; J2405; J2590; J2795; J7120